=== PATIENT | female | born 1970 | race African-American/Black ===

== ENCOUNTER 2019-08-01 14:37 | Emergency (ER) | payer MEDICAID ==
[~2019-08-01] VITALS: Ht 167.6 cm; Wt 78.0 kg
[2019-08-01] MEDS ORDERED: SODIUM CHLORIDE 0.9% 1,000 ML IV ONE (15:55)
[2019-08-01 16:40] LABS: BASOPHILS % 0.8 % (0.0-2.0); EOSINOPHILS % 0.1 % (0.0-5.0); HEMATOCRIT. 42.1 % (36.0-48.0); HEMOGLOBIN. 14.5 g/dL (12.0-16.0); LYMPHOCYTES % 9.6 % (20.0-50.0); MEAN CORPUSCULAR VOLUME 98.3 fL (81.0-99.0); MEAN PLATELET VOLUME 8.1 fl (7.4-10.4); MONOCYTES % 4.7 % (2.0-8.0); NEUTROPHILS % 84.8 % (40.0-76.0); PLATELET 187 x1000/uL (130-400); RED BLOOD CELL COUNT 4.28 mill/uL (4.2-5.4); RED CELL DISTRIBUTION WIDTH 13.4 % (11.6-14.6)
[2019-08-01 16:43] LABS: CHLORIDE 105 mEq/L (98-107)
[2019-08-01 16:44] LABS: CLARITY URINE CLOUDY (CLEAR); COLOR URINE YELLOW (YELLOW); KETONES URINE 2+ (NEGATIVE); LEUKOCYTE ESTERASE URINE 3+ (NEGATIVE); NITRITE URINE POSITIVE (NEGATIVE); OCCULT BLOOD URINE NEGATIVE (NEGATIVE); PROTEIN URINE NEGATIVE (NEGATIVE); PROTHROMBIN TIME 10.6 sec (9.6-11.0); SPECIFIC GRAVITY URINE 1.019 (1.005-1.030)
[2019-08-01 16:48] LABS: ETHANOL BLOOD < 10 mg/dL; HCG SCREEN NEGATIVE
[2019-08-01 17:14] LABS: *AMPHETAMINES SCREEN URINE NEGATIVE (NEGATIVE); *BARBITURATES SCREEN URINE NEGATIVE (NEGATIVE); *BENZODIAZEPINES SCREEN URINE NEGATIVE (NEGATIVE); *COCAINE SCREEN URINE NEGATIVE (NEGATIVE); METHADONE URINE SCREEN NEGATIVE (NEGATIVE); OPIATES URINE SCREEN NEGATIVE (NEGATIVE)
[2019-08-01] MEDS ORDERED: CEFTRIAXONE 1 G PREMIX 50 ML IV ONE (17:15)
[2019-08-01 17:16] LABS: PHENCYCLIDINE URINE SCREEN NEGATIVE (NEGATIVE)
[2019-08-01 17:17] LABS: CANNABINOID URINE SCREEN PRESUMTIVE POSITIVE (NEGATIVE)
[2019-08-01] MEDS ORDERED: MORPHINE SULFATE 4 MG/ML CPJ (NOT FOR IM USE) IV STA (18:24)
[2019-08-01] MEDS ORDERED: ONDANSETRON HCL 4MG/2ML INJ IV STA (18:24)
[2019-08-01 19:00] VITALS: BP 119/82
[2019-08-01] MEDS ORDERED: IOHEXOL-300 100 ML BOTTLE ONE (19:39)
== END 2019-08-01 19:00 | disposition home or self-care (01) ==
LOC: ER 14:37
DX: T14.8XXA Other injury of unspecified body region, initial encounter (principal); N39.0 Urinary tract infection, site not specified; R07.9 Chest pain, unspecified; R06.02 Shortness of breath; R11.0 Nausea; R51 Headache; R42 Dizziness and giddiness; F17.200 Nicotine dependence, unspecified, uncomplicated; F12.10 Cannabis abuse, uncomplicated; V89.2XXA Person injured in unspecified motor-vehicle accident, traffic, initial encounter; Y93.89 Activity, other specified; Y92.89 Other specified places as the place of occurrence of the external cause; Y99.8 Other external cause status
CPT/HCPCS: 36415; 70450; 71045; 71260; 72125; 74177; 80053; 80305; 80320; 81003; 81025; 84484; 84703; 85025; 85610; 86850; 86900; 86901; 87077; 87086; 87186; 93005; 96361; 96365; 96375; 99284; J0696; J2270; J2405; J7030; Q9967; G0480

== ENCOUNTER 2025-10-27 14:21 | Emergency (ER) | payer MEDICAID ==
[~2025-10-27] VITALS: Ht 172.7 cm; Wt 91.0 kg
[2025-10-27 14:23] VITALS: TEMP 98.3; O2SAT 99
[2025-10-27 15:06] LABS: BASOPHILS % 1.0 % (0.0-2.0); EOSINOPHILS % 0.5 % (0.0-5.0); HEMATOCRIT. 44.4 % (36.0-48.0); HEMOGLOBIN. 14.8 g/dL (12.0-16.0); LYMPHOCYTES % 23.0 % (20.0-50.0); MEAN PLATELET VOLUME 7.0 fl (7.4-10.4); MONOCYTES % 3.9 % (2.0-8.0); NEUTROPHILS % 71.6 % (40.0-76.0); PLATELET 322 x1000/uL (130-400); RED BLOOD CELL COUNT 4.65 mill/uL (4.2-5.4); RED CELL DISTRIBUTION WIDTH 14.9 % (11.6-14.6)
[2025-10-27] MEDS: METOCLOPRAMIDE HCL 10MG/2ML VIAL IV ONE (15:12)
[2025-10-27] MEDS: DEXAMETHASONE 10 MG/ML VIAL IV ONE (15:13)
[2025-10-27] MEDS: SODIUM CHLORIDE 0.9% 1,000 ML IV ONE (15:13)
[2025-10-27] MEDS: IOHEXOL-350 100 ML BOTTLE ONE (15:18)
[2025-10-27 15:21] LABS: CREATININE 1.1 mg/dL (0.6-1.0); UREA NITROGEN BLOOD 18 mg/dL (9-23)
[2025-10-27 15:22] LABS: ETHANOL BLOOD < 10 mg/dL (<10); PROTEIN TOTAL 8.1 g/dL (6.0-8.3)
[2025-10-27 15:23] LABS: ASPARTATE AMINOTRANSFERASE 18 IU/L (<34)
[2025-10-27 15:24] LABS: BILIRUBIN DIRECT 0.2 mg/dL (<=3.0); BILIRUBIN TOTAL 0.8 mg/dL (0.1-1.0)
[2025-10-27 15:42] LABS: INR 1.0
[2025-10-27] MEDS: DIPHENHYDRAMINE 50MG/ML VIAL IV ONE (15:57)
[2025-10-27 16:50] VITALS: BP 166/90; PULSE 87; RESP 16; O2SAT 99
== END 2025-10-27 17:10 | disposition home or self-care (01) ==
LOC: ER 14:21 → CANBEDREQ 16:37 → ER 17:10
DX: R51.9 Headache, unspecified (principal); I10 Essential (primary) hypertension; Z79.899 Other long term (current) drug therapy; Z79.01 Long term (current) use of anticoagulants
CPT/HCPCS: 80076; 80048; 80320; 85025; 85610; 85730; 36415; 71045; 70496; 70498; 70450; 93005; 96361; 96374; 96375; 99285; Q9967; J1100; J1200; J2765; G0480